=== PATIENT | male | born 1995 | race Caucasian/White ===

== ENCOUNTER 2019-09-14 15:11 | Emergency (ER) | payer OTHER ==
[2019-09-14 15:31] VITALS: BMI 21.1
--- NOTE | 2019-09-14 15:31 | PDOC ---
Rapid Medical Evaluation Chief Complaint: Headache Time Seen by Provider: 09/14/19 15:27 Medical Evaluation: Allergies Allergy/AdvReac Type Severity Reaction Status Date / Time No Known Allergies Allergy Verified 09/14/19 15:28 09/14/19 15:28 24 year old male with no pmhx presenting with head trauma x 3 weeks worsening today. Went to [facility] discharged without work up. Denies dizziness, N/V. PE: WNL Plan: CT head Pt to precede to ED for further treatment and care
[2019-09-14] MEDS ORDERED: SODIUM CHLORIDE 1,000 ML IV STA (15:48)
[2019-09-14] MEDS ORDERED: METOCLOPRAMIDE HCL INJECTION 10 MG/2 ML VIAL IVPB ONE (15:48)
[2019-09-14] MEDS ORDERED: ACETAMINOPHEN 1000 MG/100 ML VIAL (NON FORMULARY) IVPB ONE (15:48)
[2019-09-14 16:32] LABS: BASO % 1.3 % (0-2.0); HEMATOCRIT 44.5 % (35.4-49); HEMOGLOBIN 14.9 GM/dL (11.7-16.9); LYMPH % 21.8 % (8-40); MCH 31.2 pg (25.7-33.7); MCHC 33.4 g/dl (32.0-35.9); MEAN CELL VOLUME 93.2 fl (80-96); MEAN PLT VOLUME 7.8 fl (7.5-11.1); MONO % 7.3 % (3.8-10.2); NEUT % 66.6 % (42.8-82.8); PLATELET COUNT 253 K/MM3 (134-434); RBC 4.78 M/mm3 (4.00-5.60); RDW 12.8 % (11.9-15.9); WHITE BLOOD COUNT 7.6 K/mm3 (4.0-10.0)
[2019-09-14] MEDS ORDERED: METOCLOPRAMIDE HCL INJECTION 10 MG/2 ML VIAL ONE (16:43)
[2019-09-14] MEDS ORDERED: ACETAMINOPHEN INJECTION 100 ML IVPB ONE (16:43)
[2019-09-14 16:50] LABS: ALBUMIN 4.2 g/dl (3.4-5.0); BILIRUBIN,TOTAL 0.5 mg/dL (0.2-1); BLOOD UREA NITROGEN 15.5 mg/dL (7-18); CALCIUM 9.4 mg/dL (8.5-10.1); POTASSIUM 4.2 mmol/L (3.5-5.1); TOT PROT 6.9 g/dl (6.4-8.2)
[2019-09-14] MEDS ORDERED: KETOROLAC TROMETHAMINE 15 MG/ML VIAL IVPUSH ONE (18:28)
[2019-09-14] MEDS ORDERED: KETOROLAC TROMETHAMINE 15 MG/ML VIAL ONE (18:37)
--- NOTE | 2019-09-14 18:43 | PDOC ---
History of Present Illness - General Chief Complaint: Headache Stated Complaint: HEADACHE Time Seen by Provider: 09/14/19 15:27 History Source: Patient Exam Limitations: No Limitations Past History - Travel History Traveled outside of the country in the last 30 days: No Close contact w/someone who was outside of country & ill: No - Medical History Allergies/Adverse Reactions: Allergies Allergy/AdvReac Type Severity Reaction Status Date / Time No Known Allergies Allergy Verified 09/14/19 15:28 Home Medications: Ambulatory Orders Ibuprofen 600 mg PO Q6H #30 tablet 09/14/19 Methocarbamol [Robaxin -] 500 mg PO BID #14 tablet 09/14/19 - Psycho-Social/Smoking History Smoking History: Never smoked Information on smoking cessation initiated: No - Substance Abuse Hx (Audit-C & DAST Scrn) How often the patient has a drink containing alcohol: Never Score: In Men: 4 or > Positive; In Women: 3 or > Positive: 0 Screen Result (Pos requires Nsg. Audit-10AR): Negative In the last yr the pt used illegal drug/Rx for NonMed reason: No Score: Yes response is considered Positive: 0 Screen Result (Positive result requires Nsg. DAST-10): Negative Review of Systems - Review of Systems Able to Perform ROS?: Yes Comments:: 09/14/19 18:58 CONSTITUTIONAL: Absent: fever, chills, diaphoresis, generalized weakness, malaise, loss of a ppetite HEENT: Absent: rhinorrhea, nasal congestion, throat pain, throat swelling, difficulty swallowing, mouth swelling, ear pain, eye pain, visual Changes CARDIOVASCULAR: Absent: chest pain, loss of consciousness, palpitations, irregular heart rate, peripheral edema RESPIRATORY: Absent: cough, shortness of breath, dyspnea with exertion, orthopnea, wheezing, stridor, hemoptysis GASTROINTESTINAL: Absent: abdominal pain, abdominal distension, nausea, vomiting, diarrhea, constipation, melena, hematochezia GENITOURINARY: Absent: dysuria, frequency, urgency, hesitancy, hematuria, flank pain, genital pain MUSCULOSKELETAL: Absent: myalgia, arthralgia, joint swelling SKIN: Absent: rash, itching, pallor HEMATOLOGIC/IMMUNOLOGIC: Absent: easy bleeding, easy bruising, lymphadenopathy, frequent infections ENDOCRINE: Absent: unexplained weight gain, unexplained weight loss, heat intolerance, cold intolerance NEUROLOGIC: Present: Headache absent: headache, focal weakness or paresthesias, dizziness, unsteady gait, seizure, mental status changes, bladder or bowel incontinence PSYCHIATRIC: Absent: anxiety, depression, suicidal or homicidal ideation, hallucinations. Is the patient limited Bruneian proficient: No *Physical Exam - Vital Signs Last Vital Signs Temp Pulse Resp BP Pulse Ox 98.5 F 77 17 121/64 99 09/14/19 15:27 09/14/19 15:27 09/14/19 15:27 09/14/19 15:27 09/14/19 15:27 - Physical Exam 09/14/19 18:58 GENERAL: Well developed, well nourished. Awake and alert. No acute distress. HEENT: Normocephalic, atraumatic. PERRLA, EOMI. No conjunctival pallor. Sclera are non- icteric. Moist mucous membranes. Oropharynx is clear. NECK: Supple. Full ROM. N No lymphadenopathy. CARDIOVASCULAR: Regular rate and rhythm. No murmurs, rubs, or gallops. Distal pulses are 2+ and symmetric. PULMONARY: No evidence of respiratory distress. Lungs clear to auscultation bilaterally. No wheezing, rales or rhonchi. MUSCULOSKELETAL TTP of the R paraspinous muscles of the cervical spine with palpable spasm. No midline tenderness. (-) brudinski and kernig sigs. Normal range of motion at all joints. No bony deformities or tenderness. No CVA tenderness. EXTREMITIES: No cyanosis. No clubbing. No edema. No calf tenderness. SKIN: Warm and dry. Normal capillary refill. No rashes. No jaundice. NEUROLOGICAL: Alert, awake, appropriate. Cranial nerves 2-12 intact. No deficits to light touch and temperature in face, upper extremities and lower extremities. No motor deficits in the in face, upper extremities and lower extremities. Normoreflexic in the upper and lower extremities. Normal speech. Toes are down-going bilateral ly. Gait is normal without ataxia. PSYCHIATRIC: Cooperative. Good eye contact. Appropriate mood and affect. ED Treatment Course - LABORATORY CBC & Chemistry Diagram: 09/14/19 16:14 09/14/19 16:14 - ADDITIONAL ORDERS Additional order review: Laboratory Results 09/14/19 16:14 Sodium 142 Potassium 4.2 Chloride 106 Carbon Dioxide 30 Anion Gap 6 L BUN 15.5 Creatinine 1.0 Est GFR (CKD-EPI)AfAm 119.86 Est GFR (CKD-EPI)NonAf 103.41 Random Glucose 86 Calcium 9.4 Total Bilirubin 0.5 AST 18 ALT 22 Alkaline Phosphatase 95 Total Protein 6.9 Albumin 4.2 09/14/19 16:14 RBC 4.78 MCV 93.2 MCHC 33.4 RDW 12.8 MPV 7.8 Neutrophils % 66.6 Lymphocytes % 21.8 Monocytes % 7.3 Eosinophils % 3.0 Basophils % 1.3 - Medications Given in the ED: ED Medications Discontinued Medications Generic Name Dose Route Start Last Admin Trade Name Freq PRN Reason Stop Dose Admin Acetaminophen 1,000 mg 09/14/19 15:48 09/14/19 16:58 Ofirmev Injection - IVPB 09/14/19 15:49 1,000 mg ONCE ONE Administration Diphenhydramine HCl 12.5 mg 09/14/19 15:48 09/14/19 16:58 Benadryl Injection - IVPB 09/14/19 15:49 12.5 mg ONCE ONE Administration Sodium Chloride 1,000 mls @ 1,000 mls/hr 09/14/19 15:48 09/14/19 16:58 Normal Saline - IV 09/14/19 16:47 1,000 mls/hr ASDIR STA Administration Ketorolac Tromethamine 15 mg 09/14/19 18:28 09/14/19 18:41 Toradol Injection - IVPUSH 09/14/19 18:29 15 mg ONCE ONE Administration Metoclopramide HCl 10 mg 09/14/19 15:48 09/14/19 17:20 Reglan Injection - IVPB 09/14/19 15:49 10 mg ONCE ONE Administration Medical Decision Making - Medical Decision Making 09/14/19 18:59 Patient is a 24-year-old male with no past medical history, presents to the ER with 3 weeks of a headache. He states that the headache started gradually and increased in severity over the past 3 weeks. He has tried taking Tylenol and Motrin intermittently with little relief of his symptoms. He states that over the past 3 days the headache has gotten worse and has woken from sleep. Denies nausea and vomiting. He also notes that he has right-sided neck pain worse with movement. Denies fevers, chills, lightheadedness, weakness, nausea, vomiting, loss of consciousness. A/P: Headache On exam the patient is neurologically intact with no focal deficits. The right paraspinous muscles of the cervical spine are with palpable spasm and tender to palpation. Negative Babinski and Kernig signs. No nuchal rigidity. Low likelihood for intracranial hemorrhage given length and presentation of s ymptoms. Head CT shows no acute pathology. Reglan, Benadryl and offer meds given in the ER with relief of symptoms. Likely a migraine versus tension headache. Discharge home with neurology follow-up and strict return precautions. I discussed the physical exam findings, ancillary test results and final diagnoses with the patient. I answered all of the patient's questions. The patient was satisfied with the care received and felt comfortable with the discharge plan and treatment plan. The Patient agrees to follow up with the primary care physician/specialist within 24-72 hours. Return precautions were given. Discharge - Discharge Information Problems reviewed: Yes Clinical Impression/Diagnosis: Headache Qualifiers: Headache type: unspecified Headache chronicity pattern: acute headache Intractability: not intractable Qualified Code(s): R51 - Headache Condition: Stable Disposition: HOME - Admission No - Additional Discharge Information Prescriptions: Ibuprofen 600 mg PO Q6H #30 tablet Methocarbamol [Robaxin -] 500 mg PO BID #14 tablet - Follow up/Referral Referrals: Maximilian Steinberg MD [Staff Physician] - - Patient Discharge Instructions Patient Printed Discharge Instructions: DI for Headache Additional Instructions: You were seen for your headache today. Your CAT scan did not show any acute abnormalities. I suspect this is a mixture of a migraine and tension headache Please continue to take the Motrin as directed starting tomorrow. You may take the Robaxin tonight before bed to help with your muscle spasm of your neck. Please follow-up with neurology within the week. A referral has been provided to you. Return to the ER for worsening headache, vomiting, increasing neck pain or if you have any changes in your symptoms. - Post Discharge Activity
[2019-09-14 19:12] VITALS: BP 126/72; PULSE 72; TEMP 97.8
== END 2019-09-14 19:12 | disposition home or self-care (01) ==
LOC: JER 15:11
PROC: 3E033NZ Introduction of Analgesics, Hypnotics, Sedatives into Peripheral Vein, Percutaneous Approach (ICD-10-PCS; principal; 2019-09-14)
PROC: 3E033GC Introduction of Other Therapeutic Substance into Peripheral Vein, Percutaneous Approach (ICD-10-PCS; 2019-09-14)
PROC: 3E0337Z Introduction of Electrolytic and Water Balance Substance into Peripheral Vein, Percutaneous Approach (ICD-10-PCS; 2019-09-14)
DX: R51 Headache (principal)
CPT/HCPCS: 36415; 70450-TC; 80053; 85025; 96361; 96374; 96375; 99285-25; J0131

== ENCOUNTER 2019-09-18 08:38 | Inpatient (IN) | payer OTHER ==
--- NOTE | 2019-09-18 08:48 | PDOC ---
Rapid Medical Evaluation Medical Evaluation: Allergies Allergy/AdvReac Type Severity Reaction Status Date / Time No Known Allergies Allergy Verified 09/14/19 15:28 09/18/19 08:46 Pt presents for re-evaluation of headache. Pt states the headache has been going on for three weeks. Was evaluated 4 days ago and had a negative CT. States the headache comes back when medication wears off. Exam: holding head, appears uncomfortable Orders: defer to provider Pt to proceed to the ER for further evaluation Discharge Disposition - Diagnosis Headache Qualifiers: Headache type: unspecified Headache chronicity pattern: unspecified pattern Intractability: not intractable Qualified Code(s): R51 - Headache - Referrals - Patient Instructions - Post Discharge Activity
[2019-09-18 08:50] VITALS: BMI 21.1
[2019-09-18] MEDS ORDERED: ACETAMINOPHEN 1000 MG/100 ML VIAL (NON FORMULARY) IVPB ONE (10:33)
[2019-09-18] MEDS ORDERED: METOCLOPRAMIDE HCL INJECTION 10 MG/2 ML VIAL IVPB ONE (10:33)
[2019-09-18] MEDS ORDERED: SODIUM CHLORIDE 1,000 ML IV STA (10:34)
[2019-09-18] MEDS ORDERED: METOCLOPRAMIDE HCL INJECTION 10 MG/2 ML VIAL ONE (10:41)
[2019-09-18] MEDS ORDERED: ACETAMINOPHEN INJECTION 100 ML IVPB ONE (10:41)
--- NOTE | 2019-09-18 10:54 | PDOC ---
History of Present Illness - General Chief Complaint: Headache Stated Complaint: HEADACHE Time Seen by Provider: 09/18/19 08:48 - History of Present Illness Initial Comments: 09/18/19 10:55 24 year old man with no pmhx who presents with persistent headache ongoing for the past 3 weeks. Worse in the AM and occasionally associated with nausea, vomiting and tearfulness and R sided temporal headache. He reports that the headache improves throughout the day but is still persistent. He has never had a history of migraines. He deneis visual changes, sHe was seen here 4 days ago and had a negative head CT He also endorses some unsteadiness on his feet ROS GENERAL/CONSTITUTIONAL: No fever or chills. No weakness. HEAD, EYES, EARS, NOSE AND THROAT: No change in vision. No ear pain or discharge. No sore throat. CARDIOVASCULAR: No chest pain or shortness of breath RESPIRATORY: No cough, wheezing, or hemoptysis. GASTROINTESTINAL: No nausea, vomiting, diarrhea or constipation. GENITOURINARY: No dysuria, frequency, or change in urination. MUSCULOSKELETAL: No joint or muscle swelling or pain. No neck or back pain. SKIN: No rash NEUROLOGIC: +headache, No vertigo, loss of consciousness, or change in strength/sensation. ENDOCRINE: No increased thirst. No abnormal weight change HEMATOLOGIC/LYMPHATIC: No anemia, easy bleeding, or history of blood clots. ALLERGIC/IMMUNOLOGIC: No hives or skin allergy. PE GENERAL: Awake, alert, and fully oriented, in no acute distress HEAD: No signs of trauma, normocephalic, atraumatic EYES: PERRLA, EOMI, sclera anicteric, conjunctiva clear ENT: oropharynx clear without exudates. Moist mucosa NECK: Normal ROM, supple. LUNGS: No distress, speaks full sentences, clear to auscultation bilaterally HEART: Regular rate and rhythm, normal S1 and S2, no murmurs, rubs or gallops, peripheral pulses normal and equal bilaterally. ABDOMEN: Soft, nontender, normoactive bowel sounds. No guarding, no rebound. No masses EXTREMITIES : Normal inspection, Normal range of motion, no edema. No clubbing or cyanosis. NEUROLOGICAL: Cranial nerves II through XII grossly intact. Normal speech, no f ocal sensorimotor deficits SKIN: Warm, Dry, normal turgor, no rashes or lesions noted Assessment and Plan 24 year old man with no pmhx who presents with persistent headache ongoing for the past 3 weeks. Consider SAH vs aneurysm vs mass - CT, labs, LP head CT negative LP performed sterile technique under guidance of attending Dr. Pacheco CSF: 4th tube with 12 RBC and 3rd tube with 24 RBC, indicated traumatic tap Discussed case with Dr. Steinberg, neuro, will dose fioricet and topamax CTA head in process Plan for admission Debra Fleming, PGY3 Emergency Medicine Past History - Medical History Allergies/Adverse Reactions: Allergies Allergy/AdvReac Type Severity Reaction Status Date / Time No Known Allergies Allergy Verified 09/18/19 08:46 Home Medications: Ambulatory Orders Topiramate [Topamax] 25 mg PO BID #6 cap.[email or web address] 09/19/19 Topiramate [Topamax] 50 mg PO BID #60 tablet 09/19/19 - Psycho-Social/Smoking History Smoking History: Never smoked Information on smoking cessation initiated: No - Substance Abuse Hx (Audit-C & DAST Scrn) How often the patient has a drink containing alcohol: Never Score: In Men: 4 or > Positive; In Women: 3 or > Positive: 0 Screen Result (Pos requires Nsg. Audit-10AR): Negative In the last yr the pt used illegal drug/Rx for NonMed reason: No Score: Yes response is considered Positive: 0 Screen Result (Positive result requires Nsg. DAST-10): Negative *Physical Exam - Vital Signs Last Vital Signs Temp Pulse Resp BP Pulse Ox 98.1 F 62 16 126/79 99 09/18/19 08:46 09/18/19 08:46 09/18/19 08:46 09/18/19 08:46 09/18/19 08:46 ED Treatment Course - LABORATORY CBC & Chemistry Diagram: 09/19/19 06:03 09/19/19 06:03 - Medications Given in the ED: ED Medications Discontinued Medications Generic Name Dose Route Start Last Admin Trade Name Freq PRN Reason Stop Dose Admin Acetaminophen 1,000 mg 09/18/19 10:33 09/18/19 10:51 Ofirmev Injection - IVPB 09/18/19 10:34 1,000 mg ONCE ONE Administration Metoclopramide HCl 10 mg 09/18/19 10:33 09/18/19 10:51 Reglan Injection - IVPB 09/18/19 10:34 10 mg ONCE ONE Administration Discharge - Discharge Information Problems reviewed: Yes Clinical Impression/Diagnosis: Headache Qualifiers: Headache type: unspecified Headache chronicity pattern: unspecified pattern I ntractability: not intractable Qualified Code(s): R51 - Headache Condition: Improved - Follow up/Referral - Patient Discharge Instructions - Post Discharge Activity
--- NOTE | 2019-09-18 11:16 | PDOC ---
Attending Attestation - Resident Resident Name: Debra Fleming - ED Attending Attestation I have performed the following: I have examined & evaluated the patient, The case was reviewed & discussed with the resident, I agree w/resident's findings & plan, Exceptions are as noted - HPI HPI: 09/18/19 15:06 24-year-old male with no significant past medical history presents to the emergency department with headache for 3 weeks. Patient reports the headache began gradually 3 weeks ago, is constant but is much worse in the morning and has woken him up from sleep for the last few days. Headache at times a/w nausea and photophobia. He reports the headache begins at the crown of his head and then progresses down to his right buddhist and down the right side of his face. He reports when the pain is particularly bad, he feels numbness on the right side of his face. He describes the pain as a throbbing sensation. He reports the headache gets worse when he lies down and also when he gets up to walk. He has been taking Tylenol and Excedrin [id number] with only mild improvement in symptoms. He was seen here in the emergency department a few days ago, got a CT scan of his head that was negative and was discharged after his headache improved with medications. Prior to 3 weeks ago, he states he never had any headaches. Notably, patient reports his mother had a ruptured aneurysm a few years ago and required surgery at [facility]. He denies any fevers or chills. He denies any stiff neck. He denies any other focal weakness or numbness. He denies any trauma. Denies any recent travel. Denies any dizziness, chest pain, shortness of breath, abdominal pain, vomiting diarrhea, lower extremity edema or rash. - Physicial Exam PE: 09/18/19 15:11 GENERAL: Awake, alert, and fully oriented, in no acute distress but appears uncomfortable. HEAD: No signs of trauma, no temporal ttp EYES: PERRLA, EOMI, sclera anicteric, conjunctiva clear ENT: Auricles normal inspection, hearing grossly normal, nares patent, oropharynx clear without exudates. Moist mucosa NECK: Normal ROM, supple, no lymphadenopathy, JVD, or masses LUNGS: Breath sounds equal, clear to auscultation bilaterally. No wheezes, and no crackles HEART: Regular rate and rhythm, normal S1 and S2, no murmurs, rubs or gallops ABDOMEN: Soft, nontender, normoactive bowel sounds. No guarding, no rebound. No masses EXTREMITIES: Normal range of motion, no edema. No clubbing or cyanosis. No cords, erythema, or tenderness BACK: no midline cervical, thoracic, or lumbar ttp. Negative kernigs and brudzinski's NEUROLOGICAL: Normal speech, cranial nerves intact, negative pronator drift, 5/5 strength in all 4 extremities, normal sensation to light touch in all 4 extremities, normal cerebellar exam, normal gait, normal reflexes and tone SKIN: Warm, Dry, normal turgor, no rashes or lesions noted. - Medical Decision Making 09/18/19 12:11 24-year-old male presents emergency department with headache for 3 weeks. Was seen here 3 days ago, negative CTH and headache improved w meds Vitals wnl Exam wnl, no neuro deficits, neck is supple Pt appears uncomfortable In light of family hx (mother with ruptured aneurysm), pt's lack of hx of headaches, and persistence of headaches for 3 weeks - concern for SAH vs vascular malformation. DDx also includes atypical migraine vs mass occupying legion vs trigeminal neuralgia vs encephalitis. Low concern for meningitis as pt has no fevers and neck is supple Rpt CTH today negative Risks/benefits of LP discussed with patient, he has signed consent for LP. All questions answered Diagnostic value of LP is somewhat limited given duration of sxs, but could be revealing if increased RBCs. If not diagnostic, will obtain CTA to r/o vascular malformation. Anticipate neuro c/s and admission given duration of headache, reported neurologic sxs, and possible need for MRI 09/18/19 15:21 CSF performed w/o complication. CSF initially bloody (likely traumatic tap), but quickly cleared Lab ran cell count on tubes 3 and 4 Per lab, RBCs in tube 3 in 20s, in tube 3 RBCs are 12 making SAH less likely CTA ordered, neuro c/s pending Headache improved with IV fluids, tylenol and reglan but still 5/10 Pt to be admitted for neuro eval given c/o facial numbness and ongoing gilliam Discharge - Discharge Information Problems reviewed: Yes Clinical Impression/Diagnosis: Headache Qualifiers: Headache type: unspecified Headache chronicity pattern: unspecified pattern Intractability: not intractable Qualified Code(s): R51 - Headache Condition: Improved - Follow up/Referral - Patient Discharge Instructions - Post Discharge Activity
[2019-09-18 11:31] LABS: BASO % 0.8 % (0-2.0); EOS % 1.3 % (0-4.5); HEMATOCRIT 42.9 % (35.4-49); HEMOGLOBIN 14.4 GM/dL (11.7-16.9); LYMPH % 12.6 % (8-40); MCH 30.9 pg (25.7-33.7); MCHC 33.5 g/dl (32.0-35.9); MEAN CELL VOLUME 92.2 fl (80-96); MEAN PLT VOLUME 8.2 fl (7.5-11.1); NEUT % 79.3 % (42.8-82.8); PLATELET COUNT 248 K/MM3 (134-434); RBC 4.66 M/mm3 (4.00-5.60); WHITE BLOOD COUNT 11.4 K/mm3 (4.0-10.0)
[2019-09-18 11:39] LABS: INR 0.95 (0.83-1.09); PROTHROMBIN TIME (PATIENT) 11.2 SEC (9.7-13.0)
[2019-09-18 11:42] LABS: ACTIVATED PTT 35.9 SECONDS (25.2-36.5)
[2019-09-18 12:02] LABS: ALBUMIN 4.1 g/dl (3.4-5.0); BILIRUBIN,TOTAL 0.4 mg/dL (0.2-1); BLOOD UREA NITROGEN 12.1 mg/dL (7-18); CALCIUM 8.9 mg/dL (8.5-10.1); CREATININE 0.7 mg/dL (0.55-1.3); MAGNESIUM 2.3 mg/dL (1.8-2.4); POTASSIUM 3.7 mmol/L (3.5-5.1); TOT PROT 6.6 g/dl (6.4-8.2)
[2019-09-18 13:30] LABS: BF GLUCOSE (CSF ONLY) 58 mg/dL (40-70)
[2019-09-18 14:11] LABS: CSF APPEARANCE CLEAR; CSF COLOR COLORLESS; CSF WBC 0
[2019-09-18] MEDS ORDERED: TOPIRAMATE 25 MG TABLET PO ONE (16:40)
[2019-09-18] MEDS ORDERED: ACETAMINOPHEN/CAFFEINE/BUTALBITAL 1 TAB PO ONE (16:41)
[2019-09-18] MEDS ORDERED: ACETAMINOPHEN/CAFFEINE/BUTALBITAL 1 TAB ONE (17:01)
[2019-09-18] MEDS ORDERED: TOPIRAMATE 25 MG TABLET ONE (17:02)
--- NOTE | 2019-09-18 19:00 | PN ---
Teaching Attending Note Name of Resident: Jane Cárdenas ATTENDING PHYSICIAN STATEMENT I saw and evaluated the patient. I reviewed the resident's note and discussed the case with the resident. I agree with the resident's findings and plan as documented. SUBJECTIVE: This is a 24 y/o m with Hx of asthma who presents for recurrent head aches. Roshan carlisle states that for the last 3 weeks he has been ahving headaches. He reports that they are worse in the morning and improve with NSAID administration. Currently he reports his headache has improved, however he is fearful that they may come back. States that nothing has changed over the last few weeks in terms of his health/medications. Patient does state that he has a family history of brain aneurysms. He does report some temporal tingling sensations associated with his headaches. PMH, PSH, ROS, Social Hx, FH as per resident note OBJECTIVE: Vital Signs Period Temp Pulse Resp BP Sys/Ward Pulse Ox Last 24 Hr 98.1 F-98.2 F 62-78 16-18 125-126/67-79 99-100 GENERAL: Awake, alert, and fully oriented, some back pain HEAD: Normal with no signs of trauma. EYES: Pupils equal, round and reactive to light, extraocular movements intact, sclera anicteric, conjunctiva clear. No lid lag. EARS, NOSE, THROAT: Ears normal, nares patent, oropharynx clear without exudates. Moist mucous membranes. NECK: Normal range of motion, supple without lymphadenopathy, JVD, or masses. LUNGS: Breath sounds equal, clear to auscultation bilaterally. No wheezes, and no crackles. No accessory muscle use. HEART: Regular rate and rhythm, normal S1 and S2 without murmur, rub or gallop. ABDOMEN: Soft, nontender, not distended, normoactive bowel sounds, no guarding, no rebound, no masses. No hepatomegaly or splenomegaly. MUSCULOSKELETAL: Normal range of motion at all joints. No bony deformities or tenderness. No CVA tenderness. UPPER EXTREMITIES: 2+ pulses, warm, well-perfused. No cyanosis. No clubbing. Cap refill <2 seconds. No peripheral edema. LOWER EXTREMITIES: 2+ pulses, warm, well-perfused. No calf tenderness. No peripheral edema. NEUROLOGICAL: Cranial nerves II-XII intact. Normal speech. Normal gait. PSYCHIATRIC: Cooperative. Good eye contact. Appropriate mood and affect. SKIN: Warm, dry, normal turgor, no rashes or lesions noted. ASSESSMENT AND PLAN: 24 y/o M with asthma who presents for recurrent headaches Recurrent headaches: f.u CTA Neuro consultation Likely has Cluster headaches can consider Verapamil f/u results of LP, lyme serologies Check B12, folate, RPR May need to consider NeuroSx vs. NeuroInterventional evaluation if patient has a critical aneurysm continue supportive treatment with tylenol Rest of plan as per resident note
--- NOTE | 2019-09-18 19:19 | HP ---
CHIEF COMPLAINT: Headache PCP: HISTORY OF PRESENT ILLNESS: 24 y/o M PMHx Asthma presents with headache. Patient says he has been having a headache for the past 3 weeks. The majority of the time, it presents the same way---Sudden onset that awakens him over his neck with radiation to the top of his head and behind his right eye. This pain has been worsening and multiple times is accompanied by RUE Numbness. As a result, he has visited our ED recently and believes the pain has improved with IV Pain control; His attempts to control the pain at home with oral meds have not been fruitful. He is unable to identify a trigger or relieving factor but endorses he is now unable to sleep or lay down and endorses that the pain is worst in the AM. Endorses FHx of brain aneurysm. Additionally endorses 3 episodes of Vomiting 3 days ago--NBNB, Clear liquid. Denies any fevers, chills, chest pain, SOB, diarrhea, constipation, dysuria, Hematuria, visual changes. No hx of Migraines. Denies any recent medication changes, travel, trauma. ER course was notable for: (1) Ofirmev, Reglan, Topamax, Fioricet (2) Neuro Consult (3) 1L NS Recent Travel: Denies PAST MEDICAL HISTORY: As per HPI PAST SURGICAL HISTORY: Denies Social History: Smokin cigs weekly Alcohol: Denies Drugs: Denies Allergies No Known Allergies Allergy (Verified 09/18/19 08:46) HOME MEDICATIONS: Home Medications Medication Instructions Recorded NK [No Known Home Medication] 09/18/19 REVIEW OF SYSTEMS As per HPI PHYSICAL EXAMINATION Vital Signs - 24 hr 09/18/19 09/18/19 08:46 16:00 Temperature 98.1 F 98.2 F Pulse Rate 62 Pulse Rate [ 78 Apical] Respiratory 16 18 Rate Blood Pressure 126/79 Blood Pressure 125/67 [Right Arm] O2 Sat by Pulse 99 100 Oximetry (%) GENERAL: A&Ox3, NAD HEAD: NCAT EYES: PERRL, EOMI ENT: Oropharynx clear without exudates. Moist mucous membranes. NECK: No JVD LUNGS: Diminished breath sounds at the bases, No wheezes, no crackles HEART: RRR, S1 S2 ABDOMEN: Soft, nontender, not distended, + bowel sounds, no guarding, no rebound MUSCULOSKELETAL: No CVA tenderness. EXTREMITIES: No peripheral edema. NEUROLOGICAL: Cranial nerves II-XII intact. Normal speech. Gross sensation intact throughout. 5/5 muscle strength throughout. PSYCHIATRIC: Cooperative. SKIN: Warm, dry Laboratory Results - last 24 hr 09/18/19 09/18/19 09/18/19 10:04 10:04 10:04 WBC 11.4 H RBC 4.66 Hgb 14.4 Hct 42.9 MCV 92.2 MCH 30.9 MCHC 33.5 RDW 13.0 Plt Count 248 MPV 8.2 Absolute Neuts (auto) 9.0 H Neutrophils % 79.3 Lymphocytes % 12.6 D Monocytes % 6.0 Eosinophils % 1.3 Basophils % 0.8 Nucleated RBC % 0 PT with INR 11.20 INR 0.95 PTT (Actin FS) 35.9 Sodium 138 Potassium 3.7 Chloride 106 Carbon Dioxide 26 Anion Gap 7 L BUN 12.1 Creatinine 0.7 Est GFR (CKD-EPI)AfAm 150.95 Est GFR (CKD-EPI)NonAf 130.24 Random Glucose 85 Calcium 8.9 Magnesium 2.3 Total Bilirubin 0.4 AST 13 L ALT 19 Alkaline Phosphatase 86 Total Protein 6.6 Albumin 4.1 CSF Appearance CSF Color CSF WBC CSF RBC CSF Neutrophils CSF Lymphocytes CSF Eosinophils CSF Basophils CSF Macrophages CSF Plasma Cells CSF Diff Comment CSF Comment CSF Glucose CSF Total Protein Blood Type Antibody Screen 09/18/19 09/18/19 09/18/19 10:04 10:45 12:42 WBC RBC Hgb Hct MCV MCH MCHC RDW Plt Count MPV Absolute Neuts (auto) Neutrophils % Lymphocytes % Monocytes % Eosinophils % Basophils % Nucleated RBC % PT with INR INR PTT (Actin FS) Sodium Potassium Chloride Carbon Dioxide Anion Gap BUN Creatinine Est GFR (CKD-EPI)AfAm Est GFR (CKD-EPI)NonAf Random Glucose Calcium Magnesium Total Bilirubin AST ALT Alkaline Phosphatase Total Protein Albumin CSF Appearance Clear CSF Color Colorless CSF WBC 0 CSF RBC 12 CSF Neutrophils No Result Required. CSF Lymphocytes No Result Required. CSF Eosinophils No Result Required. CSF Basophils No Result Required. CSF Macrophages No Result Required. CSF Plasma Cells No Result Required. CSF Diff Comment No Result Required. CSF Comment No Result Required. CSF Glucose 58 CSF Total Protein 45 Blood Type O POSITIVE O POSITIVE Antibody Screen Negative Negative 09/18/19 12:42 WBC RBC Hgb Hct MCV MCH MCHC RDW Plt Count MPV Absolute Neuts (auto) Neutrophils % Lymphocytes % Monocytes % Eosinophils % Basophils % Nucleated RBC % PT with INR INR PTT (Actin FS) Sodium Potassium Chloride Carbon Dioxide Anion Gap BUN Creatinine Est GFR (CKD-EPI)AfAm Est GFR (CKD-EPI)NonAf Random Glucose Calcium Magnesium Total Bilirubin AST ALT Alkaline Phosphatase Total Protein Albumin CSF Appearance CSF Color CSF WBC CSF RBC CSF Neutrophils CSF Lymphocytes CSF Eosinophils CSF Basophils CSF Macrophages CSF Plasma Cells CSF Diff Comment CSF Comment CSF Glucose Cancelled CSF Total Protein Cancelled Blood Type Antibody Screen ASSESSMENT/PLAN: 24 y/o M PMHx Asthma presents with headache. Head CTA preformed given concern of FHx of Aneurysm did not reveal an aneurysm in the patient; Head CT Noncon did not reveal lesion or hemorrhage. In the ED, an LP was preformed and Neurology was consulted #Recurrent Headache -Likely Cluster Headache in nature -LP preformed in ED, Follow serologies and Cx -Head CTA: No evidence of Aneurysm -Neurology Consulted -Will consider Verapamil -Check B12, Folate, RPR #Leukocytosis -Likely reactive; If becomes febrile or toxic appearing will consider sepsis workup -Trend #Asthma -Stable, Not in acute exacerbation #FEN -No standing fluids -Replete Lytes PRN -Soft Diet #PPx -DVT: SCDs/Early Ambulation Visit type - Emergency Visit Emergency Visit: Yes ED Registration Date: 09/18/19 Care time: The patient presented to the Emergency Department on the above date and was hospitalized for further evaluation of their emergent condition. - New Patient This patient is new to me today: Yes Date on this admission: 09/18/19 - Critical Care Critical Care patient: No ATTENDING PHYSICIAN STATEMENT I saw and evaluated the patient. I reviewed the resident's note and discussed the case with the resident. I agree with the resident's findings and plan as documented. SUBJECTIVE: OBJECTIVE: ASSESSMENT AND PLAN:
[2019-09-19 06:46] LABS: BASO % 1.1 % (0-2.0); EOS % 3.1 % (0-4.5); HEMOGLOBIN 14.8 GM/dL (11.7-16.9); LYMPH % 22.9 % (8-40); MCH 30.9 pg (25.7-33.7); MCHC 33.6 g/dl (32.0-35.9); MEAN PLT VOLUME 7.9 fl (7.5-11.1); MONO % 8.7 % (3.8-10.2); NEUT % 64.2 % (42.8-82.8); PLATELET COUNT 261 K/MM3 (134-434); RBC 4.78 M/mm3 (4.00-5.60); WHITE BLOOD COUNT 9.2 K/mm3 (4.0-10.0)
[2019-09-19 07:13] LABS: ALBUMIN 3.9 g/dl (3.4-5.0); BILIRUBIN,TOTAL 0.8 mg/dL (0.2-1); BLOOD UREA NITROGEN 9.4 mg/dL (7-18); CALCIUM 9.1 mg/dL (8.5-10.1); CREATININE 0.9 mg/dL (0.55-1.3); MAGNESIUM 2.4 mg/dL (1.8-2.4); PHOSPHOROUS 3.6 mg/dL (2.5-4.9); POTASSIUM 3.7 mmol/L (3.5-5.1); TOT PROT 6.6 g/dl (6.4-8.2)
[2019-09-19 07:24] VITALS: TEMP 98.3
--- NOTE | 2019-09-19 08:48 | CONSULT ---
Consult - text type - Consultation Consultation Note: Neurology CHIEF COMPLAINT: Headache HISTORY OF PRESENT ILLNESS: 24 y/o M PMHx Asthma presented with headache. Patient said he has been having a headache for the past 3 weeks prior to day of admission. The majority of the time, it presented the same way---Sudden onset that awakens him over his neck with radiation to the top of his head and behind his right eye. This pain has been worsening and multiple times is accompanied by RUE Numbness. As a result, he has visited our ED recently and believes the pain has improved with IV Pain control; His attempts to control the pain at home with oral meds have not been fruitful. He was unable to identify a trigger or relieving factor but endorsed he was unable to sleep or lay down and endorsed that the pain is worst in the AM. Endorsed FHx of brain aneurysm. Additionally endorsed 3 episodes of Vomiting 3 days prior to admission--NBNB, Clear liquid.Denied any fevers, chills, chest pain, SOB, diarrhea, constipation, dysuria, Hematuria, visual changes. No hx of Migraines. Denied any recent medication changes, travel, trauma. CT of Head performed and demonstrated no intracranial lesion or hemorrhage. CTA of head reviewed and showed no evidence of aneurysm formation. Patient remains in ER and does report headaches but no focal deficits and otherwise neurologically intact. Recent Travel: Denied PAST MEDICAL HISTORY: As per HPI PAST SURGICAL HISTORY: Denied Social History: Smokin cigs weekly Alcohol: Denied Drugs: Denied REVIEW OF SYSTEMS CONSTITUTIONAL: Absent: fever, chills, diaphoresis, + generalized weakness, malaise HEENT: Absent: rhinorrhea, nasal congestion, throat pain, throat swelling, difficulty swallowing, mouth swelling, ear pain, eye pain, visual changes CARDIOVASCULAR: Absent: chest pain, syncope, palpitations, irregular heart rate, lightheadedness, peripheral edema RESPIRATORY: Absent: cough, shortness of breath, dyspnea with exertion, orthopnea, wheezing, stridor, hemoptysis GASTROINTESTINAL: Absent: abdominal pain, abdominal distension, nausea GENITOURINARY: Absent: dysuria, frequency, urgency, MUSCULOSKELETAL: Absent: myalgia, SKIN: Absent: rash, itching, pallor HEMATOLOGIC/IMMUNOLOGIC: Absent: easy bleeding, easy bruising, lymphadenopathy, frequent infections ENDOCRINE: Absent: unexplained weight gain, unexplained weight loss, heat intolerance, cold intolerance NEUROLOGIC: Absent: headache, focal weakness or paresthesias, dizziness, seizure, PSYCHIATRIC: Absent: anxiety, depression, suicidal or homicidal ideation, hallucinations. Allergies No Known Allergies Allergy (Verified 09/18/19 08:46) HOME MEDICATIONS: Home Medications Medication Instructions Recorded NK [No Known Home Medication] 09/18/19 PHYSICAL EXAMINATION Vital Signs Period Temp Pulse Resp BP Sys/Ward Pulse Ox Last 24 Hr 98.2 F-98.3 F 64-78 18-18 103-125/58-67 98-100 GENERAL: A&Ox3, NAD HEAD: NCAT EYES: PERRL, EOMI ENT: Oropharynx clear without exudates. Moist mucous membranes. NECK: No JVD LUNGS: Diminished breath sounds at the bases, No wheezes, no crackles HEART: RRR, S1 S2 ABDOMEN: Soft, nontender, not distended, + bowel sounds, no guarding, no rebound MUSCULOSKELETAL: No CVA tenderness. EXTREMITIES: No peripheral edema. NEUROLOGICAL: Cranial nerves II-XII intact. Normal speech. Gross sensation intact throughout. 5/5 muscle strength throughout. PSYCHIATRIC: Cooperative. SKIN: Warm, dry CBCD WBC 9.2 K/mm3 (4.0-10.0) 09/19/19 06:03 RBC 4.78 M/mm3 (4.00-5.60) 09/19/19 06:03 Hgb 14.8 GM/dL (11.7-16.9) 09/19/19 06:03 Hct 44.0 % (35.4-49) 09/19/19 06:03 MCV 92.0 fl (80-96) 09/19/19 06:03 MCHC 33.6 g/dl (32.0-35.9) 09/19/19 06:03 RDW 13.0 % (11.9-15.9) 09/19/19 06:03 Plt Count 261 K/MM3 (134-434) 09/19/19 06:03 MPV 7.9 fl (7.5-11.1) 09/19/19 06:03 CMP Sodium 137 mmol/L (136-145) 09/19/19 06:03 Potassium 3.7 mmol/L (3.5-5.1) 09/19/19 06:03 Chloride 109 mmol/L (98-107) H 09/19/19 06:03 Carbon Dioxide 26 mmol/L (21-32) 09/19/19 06:03 Anion Gap 2 MMOL/L (8-16) L 09/19/19 06:03 BUN 9.4 mg/dL (7-18) 09/19/19 06:03 Creatinine 0.9 mg/dL (0.55-1.3) 09/19/19 06:03 Random Glucose 78 mg/dL (74-106) 09/19/19 06:03 Calcium 9.1 mg/dL (8.5-10.1) 09/19/19 06:03 Total Bilirubin 0.8 mg/dL (0.2-1) 09/19/19 06:03 AST 12 U/L (15-37) L 09/19/19 06:03 ALT 19 U/L (13-61) 09/19/19 06:03 Alkaline Phosphatase 74 U/L (45-117) 09/19/19 06:03 Total Protein 6.6 g/dl (6.4-8.2) 09/19/19 06:03 Albumin 3.9 g/dl (3.4-5.0) 09/19/19 06:03 ASSESSMENT/PLAN: 24 y/o M PMHx Asthma presented with headache. Patient said he has been having a headache for the past 3 weeks prior to day of admission. The majority of the time, it presented the same way---Sudden onset that awakens him over his neck with radiation to the top of his head and behind his right eye. This pain has been worsening and multiple times is accompanied by RUE Numbness. As a result, he has visited our ED recently and believes the pain has improved with IV Pain control; His attempts to control the pain at home with oral meds have not been fruitful. He was unable to identify a trigger or relieving factor but endorsed he was unable to sleep or lay down and endorsed that the pain is worst in the AM. Endorsed FHx of brain aneurysm. Additionally endorsed 3 episodes of Vomiting 3 days prior to admission--NBNB, Clear liquid.Denied any fevers, chills, chest pain, SOB, diarrhea, constipation, dysuria, Hematuria, visual changes. No hx of Migraines. Denied any recent medication changes, travel, trauma. CT of Head performed and demonstrated no intracranial lesion or hemorrhage. CTA of head reviewed and showed no evidence of aneurysm formation. Can give patient topamax 25mg twice daily for 3 days then increase to 50mg twice daily. Can also provide Fioricet to be taken as needed, but not more than 2-3 times per day, not more than 2 or 3 days per week. Cognitive rest recommended, headache triggers discussed, headache prevention discussed. Outpatient follow-up recommended.
[2019-09-19] MEDS ORDERED: ACETAMINOPHEN 1000 MG/100 ML VIAL (NON FORMULARY) IVPB PRN (08:59)
[2019-09-19 09:57] VITALS: BP 115/69; PULSE 68
[2019-09-19] MEDS ORDERED: SODIUM CHLORIDE 1,000 ML IV STA (10:04)
--- NOTE | 2019-09-19 16:43 | DS ---
Physical Exam: SUBJECTIVE: Patient seen and examined. Patient reported improvement of headache overnight, and has not asked for any more medications. OBJECTIVE: Vital Signs Temperature 98.3 F 09/19/19 09:57 Pulse Rate 68 09/19/19 09:57 Respiratory Rate 19 09/19/19 09:57 Blood Pressure 115/69 09/19/19 09:57 O2 Sat by Pulse Oximetry (%) 100 09/19/19 09:57 PHYSICAL EXAM GENERAL: The patient is awake, alert, and fully oriented, in no acute distress. HEAD: Normal with no signs of trauma. EYES: PERRLA, EOMI, sclera anicteric, conjunctiva clear. ENT: dry mucous membranes. NECK:full range of motion, supple. LUNGS: Breath sounds equal, clear to auscultation bilaterally HEART: Regular rate and rhythm, S1, S2 without murmur, rub or gallop. ABDOMEN: Soft, nontender, nondistended, normoactive bowel sounds EXTREMITIES: 2+ pulses, warm, well-perfused, no edema. NEUROLOGICAL: Cranial nerves II through XII grossly intact. Normal speech, normal gait. SEnsation intact, Motor strength 5/5 PSYCH: Normal mood, normal affect. SKIN: Warm, dry, normal turgor LABS Laboratory Results - last 24 hr 09/18/19 09/19/19 09/19/19 12:48 06:03 06:03 WBC 9.2 RBC 4.78 Hgb 14.8 Hct 44.0 MCV 92.0 MCH 30.9 MCHC 33.6 RDW 13.0 Plt Count 261 MPV 7.9 Absolute Neuts (auto) 5.9 Neutrophils % 64.2 Lymphocytes % 22.9 D Monocytes % 8.7 Eosinophils % 3.1 D Basophils % 1.1 Nucleated RBC % 0 Sodium Potassium Chloride Carbon Dioxide Anion Gap BUN Creatinine Est GFR (CKD-EPI)AfAm Est GFR (CKD-EPI)NonAf Random Glucose Calcium Phosphorus Magnesium Total Bilirubin AST ALT Alkaline Phosphatase Total Protein Albumin Vitamin B12 Serum Folate Syphilis Serology Non-reactive COVID-19 ([facility]) Not detected 09/19/19 06:03 WBC RBC Hgb Hct MCV MCH MCHC RDW Plt Count MPV Absolute Neuts (auto) Neutrophils % Lymphocytes % Monocytes % Eosinophils % Basophils % Nucleated RBC % Sodium 137 Potassium 3.7 Chloride 109 H Carbon Dioxide 26 Anion Gap 2 L BUN 9.4 Creatinine 0.9 Est GFR (CKD-EPI)AfAm 136.14 Est GFR (CKD-EPI)NonAf 117.46 Random Glucose 78 Calcium 9.1 Phosphorus 3.6 Magnesium 2.4 Total Bilirubin 0.8 AST 12 L ALT 19 Alkaline Phosphatase 74 Total Protein 6.6 Albumin 3.9 Vitamin B12 449 Serum Folate 14 Syphilis Serology COVID-19 ([facility]) HOSPITAL COURSE: Date of Admission:09/18/19 Date of Discharge: 09/19/19 Patient is a 24 y/o M PMHx Asthma presents with headache. Head CTA preformed given concern of FHx of Aneurysm did not reveal an aneurysm in the patient; CT of Head performed and demonstrated no intracranial lesion or hemorrhage. CTA of head reviewed and showed no evidence of aneurysm formation. In the ED, an LP was preformed and Neurology was consulted. Recommended topamax 25mg twice daily for 3 days then increase to 50mg twice daily. Can also provide Fioricet to be taken as needed, but not more than 2-3 times per day, not more than 2 or 3 days per week. Cognitive rest recommended, headache triggers discussed, headache prevention discussed. Patient discharged with instructions to follow up with PCP and neurology. Minutes to complete discharge: 36 Discharge Summary Problems reviewed: Yes Reason For Visit: HEADACHE Condition: Improved - Instructions Diet, Activity, Other Instructions: Your visit You were admitted to the hospital because you had a headache. CAT scan of your head was normal. You were also evaluated by the neurologist and prescribed you medications as instructed below. Medications Please take the following medications as prescribed: 1. Topamax 25mg twice daily for 3 days, then increase to 50mg twice a day. 2. You may take Tylenol or Ibuprofen as needed for pain Follow up Please follow up with your primary care doctor within 1 week. If you do not have one, we provided you a referral at the resident medical clinic at [facility]. Please follow up with the neurologist (Dr. Steinberg) within 1-2 weeks. Additional info Please call 911 or go to the ED if with any worsening fevers, chills, headache, dizziness,chest pain, shortness of breath, belly pain, diarrhea, or any new concerns noted. Referrals: [facility] [place] [Provider Group] Maximilian Steinberg MD [Staff Physician] - Disposition: HOME - Home Medications Comprehensive Discharge Medication List: Ambulatory Orders Topiramate [Topamax] 25 mg PO BID #6 cap.sprink 09/19/19 Topiramate [Topamax] 50 mg PO BID #60 tablet 09/19/19 This patient is new to me today: Yes Date on this admission: 09/19/19 Emergency Visit: Yes ED Registration Date: 09/18/19 Care time: The patient presented to the Emergency Department on the above date and was hospitalized for further evaluation of their emergent condition. Critical Care patient: No - Discharge Referral Referred to [facility] No ATTENDING PHYSICIAN STATEMENT I saw and evaluated the patient. I reviewed the resident's note and discussed the case with the resident. I agree with the resident's findings and plan as documented. SUBJECTIVE: OBJECTIVE: ASSESSMENT AND PLAN:
--- NOTE | 2019-09-20 18:21 | PN ---
Teaching Attending Note Name of Resident: Hoda Last ATTENDING PHYSICIAN STATEMENT I saw and evaluated the patient. I reviewed the resident's note and discussed the case with the resident. I agree with the resident's findings and plan as documented. SUBJECTIVE: Patient seen and examined at bedside, endorses improvement of SCOTT w/ IV Tylenol, CT head neg. for ICH, likely 2/2 cluster SCOTT with migraine variant. Cleared by Neurology for OP follow up. VSS. OBJECTIVE: GENERAL: The patient is awake, alert, and fully oriented, in no acute distress. HEAD: Normal with no signs of trauma. EYES: PERRLA, EOMI, sclera anicteric, conjunctiva clear. ENT: dry mucous membranes. NECK:full range of motion, supple. LUNGS: Breath sounds equal, clear to auscultation bilaterally HEART: Regular rate and rhythm, S1, S2 without murmur, rub or gallop. ABDOMEN: Soft, nontender, nondistended, normoactive bowel sounds EXTREMITIES: 2+ pulses, warm, well-perfused, no edema. NEUROLOGICAL: Cranial nerves II through XII grossly intact. Normal speech, normal gait. SEnsation intact, Motor strength 5/5 PSYCH: Normal mood, normal affect. SKIN: Warm, dry, normal turgor Vital Signs (72 hours) 09/18/19 09/18/19 09/19/19 08:46 16:00 00:23 Temperature 98.1 F 98.2 F Pulse Rate 62 Pulse Rate [ 78 64 Apical] Respiratory 16 18 18 Rate Blood Pressure 126/79 Blood Pressure 125/67 106/58 L [Right Arm] O2 Sat by Pulse 99 100 99 Oximetry (%) 09/19/19 09/19/19 09/19/19 04:13 07:00 09:57 Temperature 98.3 F 98.3 F Pulse Rate Pulse Rate [ 71 68 Apical] Respiratory 18 19 Rate Blood Pressure Blood Pressure 103/62 115/69 [Right Arm] O2 Sat by Pulse 99 98 100 Oximetry (%) Microbiology 09/18/19 12:42 Cerebral Spinal Fluid - Lumbar Puncture Gram Stain - Final 09/18/19 12:42 Cerebral Spinal Fluid - Lumbar Puncture CSF Culture - Preliminary Laboratory Tests 09/18/19 09/18/19 09/18/19 10:04 10:04 10:04 WBC 11.4 H RBC 4.66 Hgb 14.4 Hct 42.9 MCV 92.2 MCH 30.9 MCHC 33.5 RDW 13.0 Plt Count 248 MPV 8.2 Absolute Neuts (auto) 9.0 H Neutrophils % 79.3 Lymphocytes % 12.6 D Monocytes % 6.0 Eosinophils % 1.3 Basophils % 0.8 Nucleated RBC % 0 PT with INR 11.20 INR 0.95 PTT (Actin FS) 35.9 Sodium 138 Potassium 3.7 Chloride 106 Carbon Dioxide 26 Anion Gap 7 L BUN 12.1 Creatinine 0.7 Est GFR (CKD-EPI)AfAm 150.95 Est GFR (CKD-EPI)NonAf 130.24 Random Glucose 85 Calcium 8.9 Phosphorus Magnesium 2.3 Total Bilirubin 0.4 AST 13 L ALT 19 Alkaline Phosphatase 86 Total Protein 6.6 Albumin 4.1 Vitamin B12 Serum Folate CSF Appearance CSF Color CSF WBC CSF RBC CSF Neutrophils CSF Lymphocytes CSF Eosinophils CSF Basophils CSF Macrophages CSF Plasma Cells CSF Diff Comment CSF Comment CSF Glucose CSF Total Protein Syphilis Serology COVID-19 ([facility]) Blood Type Antibody Screen 09/18/19 09/18/19 09/18/19 10:04 10:45 12:42 WBC RBC Hgb Hct MCV MCH MCHC RDW Plt Count MPV Absolute Neuts (auto) Neutrophils % Lymphocytes % Monocytes % Eosinophils % Basophils % Nucleated RBC % PT with INR INR PTT (Actin FS) Sodium Potassium Chloride Carbon Dioxide Anion Gap BUN Creatinine Est GFR (CKD-EPI)AfAm Est GFR (CKD-EPI)NonAf Random Glucose Calcium Phosphorus Magnesium Total Bilirubin AST ALT Alkaline Phosphatase Total Protein Albumin Vitamin B12 Serum Folate CSF Appearance Clear CSF Color Colorless CSF WBC 0 CSF RBC 12 CSF Neutrophils No Result Required. CSF Lymphocytes No Result Required. CSF Eosinophils No Result Required. CSF Basophils No Result Required. CSF Macrophages No Result Required. CSF Plasma Cells No Result Required. CSF Diff Comment No Result Required. CSF Comment No Result Required. CSF Glucose 58 CSF Total Protein 45 Syphilis Serology COVID-19 ([facility]) Blood Type O POSITIVE O POSITIVE Antibody Screen Negative Negative 09/18/19 09/18/19 09/19/19 12:42 12:48 06:03 WBC RBC Hgb Hct MCV MCH MCHC RDW Plt Count MPV Absolute Neuts (auto) Neutrophils % Lymphocytes % Monocytes % Eosinophils % Basophils % Nucleated RBC % PT with INR INR PTT (Actin FS) Sodium Potassium Chloride Carbon Dioxide Anion Gap BUN Creatinine Est GFR (CKD-EPI)AfAm Est GFR (CKD-EPI)NonAf Random Glucose Calcium Phosphorus Magnesium Total Bilirubin AST ALT Alkaline Phosphatase Total Protein Albumin Vitamin B12 Serum Folate CSF Appearance CSF Color CSF WBC CSF RBC CSF Neutrophils CSF Lymphocytes CSF Eosinophils CSF Basophils CSF Macrophages CSF Plasma Cells CSF Diff Comment CSF Comment CSF Glucose Cancelled CSF Total Protein Cancelled Syphilis Serology Non-reactive COVID-19 ([facility]) Not detected Blood Type Antibody Screen 09/19/19 09/19/19 06:03 06:03 WBC 9.2 RBC 4.78 Hgb 14.8 Hct 44.0 MCV 92.0 MCH 30.9 MCHC 33.6 RDW 13.0 Plt Count 261 MPV 7.9 Absolute Neuts (auto) 5.9 Neutrophils % 64.2 Lymphocytes % 22.9 D Monocytes % 8.7 Eosinophils % 3.1 D Basophils % 1.1 Nucleated RBC % 0 PT with INR INR PTT (Actin FS) Sodium 137 Potassium 3.7 Chloride 109 H Carbon Dioxide 26 Anion Gap 2 L BUN 9.4 Creatinine 0.9 Est GFR (CKD-EPI)AfAm 136.14 Est GFR (CKD-EPI)NonAf 117.46 Random Glucose 78 Calcium 9.1 Phosphorus 3.6 Magnesium 2.4 Total Bilirubin 0.8 AST 12 L ALT 19 Alkaline Phosphatase 74 Total Protein 6.6 Albumin 3.9 Vitamin B12 449 Serum Folate 14 CSF Appearance CSF Color CSF WBC CSF RBC CSF Neutrophils CSF Lymphocytes CSF Eosinophils CSF Basophils CSF Macrophages CSF Plasma Cells CSF Diff Comment CSF Comment CSF Glucose CSF Total Protein Syphilis Serology COVID-19 ([facility]) Blood Type Antibody Screen Home Medications Medication Instructions Recorded Topiramate [Topamax] 25 mg PO BID #6 cap.sprink 09/19/19 Topiramate [Topamax] 50 mg PO BID #60 tablet 09/19/19 ASSESSMENT AND PLAN: 24 M Cluster SCOTT Migranous features Childhood asthma Plan: COnt. Tylenol with Ibuprofen as needed Topamax 25mg BID per Neurology recs Avoid dehydration, Etoh/THC use Follow w/ Dr. Steinberg in clinic DC home with return parameters
[2019-09-26 10:08] LABS: MUMPS AB IGG CSF < 5.0 AU/mL (<=10.9)
[2019-09-28 06:05] LABS: LYME PCR CSF Negative (Negative)
== END 2019-09-19 11:00 | disposition home or self-care (01) | DRG 54 ==
LOC: JER 08:38 → OBSVTOIN 18:01 → JERBED 18:01
PROVIDERS: ADMIT Internal Medicine
PROC: 009U3ZX Drainage of Spinal Canal, Percutaneous Approach, Diagnostic (ICD-10-PCS; principal; 2019-09-18)
DX: G44.009 Cluster headache syndrome, unspecified, not intractable (principal); G43.909 Migraine, unspecified, not intractable, without status migrainosus; J45.909 Unspecified asthma, uncomplicated; D72.829 Elevated white blood cell count, unspecified
CPT/HCPCS: 36415; 70450-TC; 70496-TC; 80053; 82607; 82746; 82945; 83735; 84100; 84157; 85025; 85610; 85730; 86694; 86735; 86765; 86780; 86787; 86788; 86789; 86850; 86900; 86901; 87070; 87205; 87476; 99285-25; J0131; Q9967; U0003

== ENCOUNTER 2022-05-12 01:01 | Inpatient (IN) | payer OTHER ==
[2022-05-12] MEDS ORDERED: ACETAMINOPHEN 1000 MG/100 ML BAG IVPB ONE (04:11)
[2022-05-12] MEDS ORDERED: LACTATED RINGERS SOLUTION 1,000 ML/1,000 ML INFUS.BAG IV STA (04:12)
[2022-05-12] MEDS ORDERED: ACETAMINOPHEN INJECTION 100 ML IVPB ONE ×2 (04:35→11:03)
[2022-05-12] MEDS ORDERED: ALBUTEROL SO4 2.5/IPRATROPIUM 0.5 INH SOL 3 ML VIAL.NEB. NEB ONE ×2 (04:40→04:41)
[2022-05-12] MEDS ORDERED: methylPREDNISolone NA SUCC 40 MG/1 ML VIAL IVPUSH ONE (04:40)
[2022-05-12] MEDS ORDERED: methylPREDNISolone NA SUCC 125 MG/2 ML VIAL ONE (04:42)
[2022-05-12] MEDS ORDERED: SODIUM CHLORIDE 0.9% 500 ML INFUS.BAG IV ONE (05:24)
[2022-05-12] MEDS ORDERED: ONDANSETRON 4 MG/2 ML VIAL IVPUSH ONE (05:25)
[2022-05-12 06:35] LABS: CALCIUM 8.6 mg/dL (8.5-10.1)
[2022-05-12 06:36] LABS: ALBUMIN 3.5 g/dl (3.4-5.0); BLOOD UREA NITROGEN 13.7 mg/dL (7-18)
[2022-05-12 06:39] LABS: CREATININE 0.9 mg/dL (0.55-1.3)
[2022-05-12 06:41] LABS: BILIRUBIN,TOTAL 2.8 mg/dL (0.2-1); TOT PROT 6.6 g/dl (6.4-8.2)
[2022-05-12] MEDS ORDERED: POTASSIUM CHLORIDE ORAL LIQUID 20 MEQ/15 ML PO ONE (07:21)
[2022-05-12 07:52] LABS: HEMATOCRIT 41.3 % (35.4-49); HEMOGLOBIN 14.2 GM/dL (11.7-16.9); MCH 30.1 pg (25.7-33.7); MCHC 34.5 g/dl (32.0-35.9); MEAN CELL VOLUME 87.4 fl (80-96); MEAN PLT VOLUME 8.5 fl (7.5-11.1); PLATELET COUNT 241 10^3/uL (134-434); RBC 4.72 M/mm3 (4.00-5.60); RDW 12.9 % (11.9-15.9); WHITE BLOOD COUNT 13.2 K/mm3 (4.0-10.0)
[2022-05-12 08:35] LABS: HEMATOCRIT 37.7 % (35.4-49); MCH 30.3 pg (25.7-33.7); MCHC 34.5 g/dl (32.0-35.9); MEAN CELL VOLUME 87.9 fl (80-96); MEAN PLT VOLUME 8.1 fl (7.5-11.1); PLATELET COUNT 207 10^3/uL (134-434); RBC 4.28 M/mm3 (4.00-5.60); RDW 12.8 % (11.9-15.9); WHITE BLOOD COUNT 14.1 K/mm3 (4.0-10.0)
[2022-05-12 08:41] LABS: MAGNESIUM 1.9 mg/dL (1.8-2.4)
[2022-05-12 08:49] LABS: ALBUMIN 3.1 g/dl (3.4-5.0); BLOOD UREA NITROGEN 11.8 mg/dL (7-18); CALCIUM 8.4 mg/dL (8.5-10.1); MAGNESIUM 1.9 mg/dL (1.8-2.4)
[2022-05-12 08:52] LABS: CREATININE 0.9 mg/dL (0.55-1.3)
[2022-05-12 08:54] LABS: BILIRUBIN,TOTAL 2.6 mg/dL (0.2-1); TOT PROT 5.8 g/dl (6.4-8.2)
[2022-05-12] MEDS ORDERED: INDOMETHACIN 50 MG RECTAL SUPPOSITORY PR ONE ×2 (09:18→12:45)
[2022-05-12] MEDS ORDERED: PIPERACILLIN/TAZOB 3.375 GM 3.375 GM in DEXTROSE 5%-WATER - 50 ML IVPB SCH (10:00)
[2022-05-12 10:11] LABS: BILIRUBIN,DIRECT 2.1 mg/dL (0.0-0.2)
[2022-05-12 10:24] LABS: INR 1.26 (0.83-1.09); PROTHROMBIN TIME (PATIENT) 14.6 SEC (9.7-13.0)
[2022-05-12] MEDS ORDERED: ACETAMINOPHEN 1000 MG/100 ML BAG IVPB PRN (10:28)
[2022-05-12] MEDS ORDERED: PHYTONADIONE 10 MG/1 ML AMP IVPB ONE (10:38)
[2022-05-12] MEDS: LACTATED RINGERS SOLUTION 1,000 ML/1,000 ML INFUS.BAG IV SCH (11:01)
[2022-05-12] MEDS ORDERED: PIPERACILLIN/TAZOB 3.375 GM 3.375 GM/50 ML BAG IVPB ONE ×2 (11:03→16:17)
[2022-05-12] MEDS ORDERED: PHYTONADIONE 10 MG/1 ML AMP ONE (11:03)
[2022-05-12] MEDS: PIPERACILLIN/TAZOB 3.375 GM 3.375 GM in DEXTROSE 5%-WATER - 50 ML IVPB SCH ×2 (11:04→17:56)
[2022-05-12] MEDS ORDERED: ALBUTEROL SO4 0.083% IH SOL 2.5 MG/3 ML VIAL.NEB. NEB PRN (12:07)
[2022-05-12 21:25] LABS: EPI CELLS 5 /uL (0-25.1); HYALINE CASTS 5 /uL (0-3.1); PH,URINE 6.5 (5.0-8.0); URINE APPEARANCE CLEAR; URINE BILIRUBIN 2+ (NEGATIVE); URINE COLOR DK YELLOW; URINE GLUCOSE (UA) NEGATIVE (NEGATIVE); URINE KETONE 2+ (NEGATIVE); URINE LEUK ESTERASE 1+ (NEGATIVE); URINE NITRITE POSITIVE (NEGATIVE); URINE PROTEIN 1+ (NEGATIVE); URINE RBC 17 /uL (0-23.9); URINE UROBILINOGEN 4.0 E.U/dl mg/dL (0.2-1.0); URINE WBC 48 /uL (0-25.8)
[2022-05-13] MEDS: LACTATED RINGERS SOLUTION 1,000 ML/1,000 ML INFUS.BAG IV SCH ×2 (00:38→13:31)
[2022-05-13] MEDS: PIPERACILLIN/TAZOB 3.375 GM 3.375 GM in DEXTROSE 5%-WATER - 50 ML IVPB SCH ×2 (02:13→12:20)
[2022-05-13 03:34] VITALS: BMI 24.2
[2022-05-13] MEDS: ONDANSETRON 4 MG/2 ML VIAL IVPUSH PRN ×2 (07:19→23:38)
[2022-05-13] MEDS ORDERED: ALBUTEROL SO4 0.083% IH SOL 2.5 MG/3 ML VIAL.NEB. NEB PRN ×3 (09:14→10:46)
[2022-05-13 10:24] LABS: CALCIUM 8.6 mg/dL (8.5-10.1)
[2022-05-13 10:25] LABS: ALBUMIN 3.2 g/dl (3.4-5.0); BLOOD UREA NITROGEN 15.3 mg/dL (7-18); MAGNESIUM 2.2 mg/dL (1.8-2.4)
[2022-05-13 10:28] LABS: CREATININE 0.8 mg/dL (0.55-1.3); PHOSPHOROUS 2.5 mg/dL (2.5-4.9)
[2022-05-13 10:29] LABS: BILIRUBIN,TOTAL 1.2 mg/dL (0.2-1); TOT PROT 6.3 g/dl (6.4-8.2)
[2022-05-13 10:31] LABS: BASO % 0.1 % (0-2.0); HEMATOCRIT 39.8 % (35.4-49); HEMOGLOBIN 13.8 GM/dL (11.7-16.9); LYMPH % 11.9 % (8-40); MCH 30.5 pg (25.7-33.7); MCHC 34.7 g/dl (32.0-35.9); MEAN CELL VOLUME 87.9 fl (80-96); MEAN PLT VOLUME 8.5 fl (7.5-11.1); MONO % 8.6 % (3.8-10.2); NEUT % 78.4 % (42.8-82.8); PLATELET COUNT 243 10^3/uL (134-434); RBC 4.52 M/mm3 (4.00-5.60); WHITE BLOOD COUNT 15.9 K/mm3 (4.0-10.0)
[2022-05-13] MEDS ORDERED: ACETAMINOPHEN 1000 MG/100 ML BAG IVPB ONE (13:40)
[2022-05-13] MEDS ORDERED: ALBUTEROL SO4 2.5/IPRATROPIUM 0.5 INH SOL 3 ML VIAL.NEB. NEB ONE (20:13)
[2022-05-14] MEDS: LACTATED RINGERS SOLUTION 1,000 ML/1,000 ML INFUS.BAG IV SCH ×4 (01:19→22:32)
[2022-05-14] MEDS ORDERED: ACETAMINOPHEN 1000 MG/100 ML BAG IVPB ONE ×2 (02:05→14:27)
[2022-05-14 08:37] LABS: BASO % 0.4 % (0-2.0); EOS % 3.6 % (0-4.5); HEMATOCRIT 38.6 % (35.4-49); HEMOGLOBIN 13.3 GM/dL (11.7-16.9); LYMPH % 7.9 % (8-40); MCHC 34.4 g/dl (32.0-35.9); MEAN CELL VOLUME 87.3 fl (80-96); MONO % 10.6 % (3.8-10.2); NEUT % 77.5 % (42.8-82.8); PLATELET COUNT 254 10^3/uL (134-434); RBC 4.42 M/mm3 (4.00-5.60); RDW 13.2 % (11.9-15.9); WHITE BLOOD COUNT 16.7 K/mm3 (4.0-10.0)
[2022-05-14 08:56] LABS: ALBUMIN 2.9 g/dl (3.4-5.0); BLOOD UREA NITROGEN 13.8 mg/dL (7-18); CALCIUM 8.4 mg/dL (8.5-10.1)
[2022-05-14 08:59] LABS: CREATININE 0.8 mg/dL (0.55-1.3)
[2022-05-14 09:00] LABS: BILIRUBIN,TOTAL 1.8 mg/dL (0.2-1); TOT PROT 5.9 g/dl (6.4-8.2)
[2022-05-14] MEDS ORDERED: PIPERACILLIN/TAZOB 3.375 GM 3.375 GM in DEXTROSE 5%-WATER - 50 ML IVPB ONE (09:59)
[2022-05-14] MEDS: PIPERACILLIN/TAZOB 3.375 GM 3.375 GM in DEXTROSE 5%-WATER - 50 ML IVPB SCH ×2 (11:02→11:03)
[2022-05-14] MEDS ORDERED: BUPIVACAINE HCL/PF 0.5% (5MG/ML) 10 ML VIAL ONE (12:38)
[2022-05-14] MEDS ORDERED: ROCURONIUM BROMIDE 50 MG/5 ML SYRINGE ONE (12:59)
[2022-05-14] MEDS ORDERED: ceFAZolin SODIUM 1 GM VIAL IVPB ONE (13:07)
[2022-05-14] MEDS ORDERED: ONDANSETRON 4 MG/2 ML VIAL ONE (13:15)
[2022-05-14] MEDS ORDERED: KETOROLAC TROMETHAMINE 30 MG/1 ML VIAL ONE (13:15)
[2022-05-14] MEDS ORDERED: DEXAMETHASONE SOD PHOSPHATE 4 MG/1 ML VIAL ONE (13:15)
[2022-05-14] MEDS ORDERED: BUPIVACAINE HCL/PF 0.5% (5MG/ML) 10 ML VIAL IJ ONE ×3 (13:23→13:57)
[2022-05-14] MEDS ORDERED: NEOSTIGMINE METHYLSULFATE 0.5 MG/1 ML - 10 ML MDV ONE (13:40)
[2022-05-14] MEDS ORDERED: GLYCOPYRROLATE 0.2 MG/1 ML VIAL ONE ×2 (13:40)
[2022-05-14] MEDS ORDERED: PROPOFOL 20 ML ONE (14:05)
[2022-05-14] MEDS ORDERED: ONDANSETRON 4 MG/2 ML VIAL IVPUSH PRN ×2 (14:24→14:52)
[2022-05-14] MEDS ORDERED: oxyCODONE HCL 5 MG TABLET PO PRN ×2 (14:24→14:28)
[2022-05-14] MEDS ORDERED: ACETAMINOPHEN INJECTION 100 ML IVPB ONE (14:41)
[2022-05-14] MEDS ORDERED: ALBUTEROL SO4 0.083% IH SOL 2.5 MG/3 ML VIAL.NEB. NEB PRN (14:52)
[2022-05-14] MEDS ORDERED: PIPERACILLIN/TAZOB 3.375 GM 3.375 GM in DEXTROSE 5%-WATER - 50 ML IVPB SCH (18:00)
[2022-05-14] MEDS: ACETAMINOPHEN 500 MG TABLET (FP) PO SCH (23:07)
[2022-05-14] MEDS ORDERED: KETOROLAC TROMETHAMINE 30 MG/1 ML VIAL IVPUSH PRN (23:30)
[2022-05-15] MEDS: ACETAMINOPHEN 500 MG TABLET (FP) PO SCH ×3 (06:26→22:15)
[2022-05-15] MEDS: LACTATED RINGERS SOLUTION 1,000 ML/1,000 ML INFUS.BAG IV SCH ×2 (06:27→17:00)
[2022-05-15 09:07] LABS: BASO % 0.3 % (0-2.0); EOS % 1.3 % (0-4.5); HEMATOCRIT 39.1 % (35.4-49); HEMOGLOBIN 13.4 GM/dL (11.7-16.9); LYMPH % 13.9 % (8-40); MCH 30.2 pg (25.7-33.7); MCHC 34.4 g/dl (32.0-35.9); MEAN CELL VOLUME 87.8 fl (80-96); MEAN PLT VOLUME 8.4 fl (7.5-11.1); MONO % 7.6 % (3.8-10.2); NEUT % 76.9 % (42.8-82.8); PLATELET COUNT 280 10^3/uL (134-434); RBC 4.45 M/mm3 (4.00-5.60); RDW 12.9 % (11.9-15.9); WHITE BLOOD COUNT 14.4 K/mm3 (4.0-10.0)
[2022-05-15 09:32] LABS: ALBUMIN 2.6 g/dl (3.4-5.0); CALCIUM 8.6 mg/dL (8.5-10.1)
[2022-05-15 09:33] LABS: BLOOD UREA NITROGEN 8.5 mg/dL (7-18)
[2022-05-15 09:35] LABS: CREATININE 0.6 mg/dL (0.55-1.3)
[2022-05-15 09:37] LABS: BILIRUBIN,TOTAL 0.7 mg/dL (0.2-1); TOT PROT 5.5 g/dl (6.4-8.2)
[2022-05-16] MEDS: ACETAMINOPHEN 500 MG TABLET (FP) PO SCH (06:32)
[2022-05-16 14:23] VITALS: BP 131/68; PULSE 95; RESP 20; TEMP 98.3
== END 2022-05-16 14:49 | disposition home or self-care (01) | DRG 263 ==
LOC: JER 01:01 → JERBED 09:13 → UNDOADMIN 09:13 → JERBED 09:33 → J8W 21:25
PROVIDERS: ADMIT Internal Medicine; ATTEND Nurse Practitioner Acute Care
PROC: 0FT44ZZ Resection of Gallbladder, Percutaneous Endoscopic Approach (ICD-10-PCS; principal; 2022-05-14 12:30)
DX: K80.00 Calculus of gallbladder with acute cholecystitis without obstruction (principal); R79.89 Other specified abnormal findings of blood chemistry; R10.11 Right upper quadrant pain; J45.909 Unspecified asthma, uncomplicated; I10 Essential (primary) hypertension; D72.829 Elevated white blood cell count, unspecified
CPT/HCPCS: 0241U-QW; 36415; 71046-TC-FY; 74181-TC; 76705-TC; 80053; 81003; 82248; 82962; 82977; 83690; 83735; 84100; 84484; 85025; 85027; 85610; 86140; 86704; 86708; 86803; 86850; 86900; 86901; 87040; 87086; 87340; 87517; 88304-TC; 93005; 93010; 94640; 94760; 99285-25